=== PATIENT | female | born 1985 | race Caucasian/White ===

== ENCOUNTER 2017-01-15 12:53 | Day surgery (SDC) | END 2017-01-15 18:23 | disposition home or self-care (01) | DX: K62.1 Rectal polyp (principal); K64.8 Other hemorrhoids; K64.4 Residual hemorrhoidal skin tags; K25.9 Gastric ulcer, unspecified as acute or chronic, without hemorrhage or perforation | CPT/HCPCS: 43239; 45380; 84703; 88305; 88312; J2250; Z7610 ==